=== PATIENT | female | born 1970 | race Caucasian/White ===

== ENCOUNTER 2017-04-01 16:13 | Emergency (ER) | payer SELFPAY ==
[~2017-04-01] VITALS: Ht 144.8 cm; Wt 83.6 kg
[~2017-04-01 16:13] MED LIST: ACET-2321 PO; ALBU8.5H INH; IBUP-1724 PO; OSEL75CA PO
[2017-04-01 16:15] VITALS: Ht 144.8 cm; Wt 83.6 kg
--- OUTSIDE RECORDS SUMMARY | 2017-04-01 16:17 | XMS REPORT | Continuity of Care Document ---
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 Migraine, unspecified, without mention of intractable migraine 09/10/2014 Diagnosis 09/15/2014 [facility] Periapical abscess without sinus 06/05/2014 Diagnosis 01/2014 [facility] Injury to anterior tibial artery 04/25/2014 Diagnosis [facility] No data available for this section Problem 07/20/2015 [facility] Medications Allergies, Adverse Reactions, Alerts Substance Category Reaction Severity Reaction type Status Date Reported Comments Source penicillin Assertion rash and breathing problems [facility] Immunizations Immunization Date Given Site Status Last Updated Comments Source No data available for this section No data available for this section [facility]. Results Vital Signs Encounters Location Location Details Encounter Type Encounter Number Reason For Visit Attending Provider ADM Date DC Date Status Source [facility] [id number] Emergency [id number] Zhen Owens 01/06/2013 [facility] [id number] Emergency [id number] Brody Ramirez 02/17/2014 02/17/2014 Active [facility] [id number] Emergency [id number] Sarath Byrd 04/25/2014 04/25/2014 [facility] Emergency [id number] Sarath Carson 04/25/2014 04/27/2014 [facility] [id number] Emergency [id number] Gavino Greenberg 06/05/2014 06/05/2014 Active [facility] Emergency [id number] Physician Non-Staff 06/05/2014 06/05/2014 [employer] [facility], [facility]. [facility] [id number] Emergency [id number] [facility] 09/10/2014 09/10/2014 [facility] CD:[id number] Emergency [id number] [facility] 10/22/2014 10/22/2014 [facility] CD:[id number] Emergency [id number] [facility] 03/08/2015 03/08/2015 [facility] CD:[id number] Outpatient [id number] [facility] 07/16/2015 07/16/2015 [facility] Procedures Procedure Code Date Perfomer Comments Source No data available for this section [facility] C sections [facility] left leg pins [facility] tubal ligation [facility] Plan of Care Social History Assessment and Plan Family History Value Date Source Advance Directives Order Name Results Value Date Source
--- OUTSIDE RECORDS SUMMARY | 2017-04-01 16:18 | XMS REPORT | Referral Summary ---
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 Name Role Phone No PCP, States Primary Care Physician [phone] Encounter Date(s): 09/14/16 - 09/14/16 [facility] [address] [place] [id number] Discharge Diagnosis: Right shoulder strain Discharge Disposition: 01-Home or Self Care Attending Physician: Rob Lopez MD Admitting Physician: Rob Lopez MD Vital Signs Most recent to 1 oldest [Reference Range]: Temperature Tympanic 35.8 degC [36.6-38.1 degC] *LOW* (09/14/16 9:19 AM) Peripheral Pulse 64 bpm Rate [60-100 bpm] (09/14/16 9:19 AM) Blood Pressure 110/68 mmHg [90-140/60-90 mmHg] (09/14/16 9:19 AM) Problem List Condition Effective Dates Status Health Status Informant Obesity(Confirmed) Active patient Allergies, Adverse Reactions, Alerts Substance Reaction Severity Status cyclobenzaprine itching all over Active penicillin itching Active rash Medications HYDROcodone-acetaminophen 5 mg-325 mg oral tablet 0.5 tabs, Oral, BID, as needed for right shoulder pain, X 10 days, # 10 tabs, 0 Refill(s) Start Date: 09/14/16 Stop Date: 09/24/16 Status: Ordered multivitamin Daily, 0 Refill(s) Start Date: 09/03/16 Status: Ordered Results No data available for this section Immunizations No data available for this section Procedures No data available for this section Social History Social History Type Response Smoking Status Never smoker Assessment and Plan Extracted from: Title: Ambulatory Patient Education Author: Rob Lopez MD Date: 09/14 Musculoskeletal Muscle Strain A muscle strain is an injury that occurs when a muscle is stretched beyond its normal length. Usually a small number of muscle fibers are torn when this happens. Muscle strain is rated in degrees. First-degree strains have the least amount of muscle fiber tearing and pain. Second-degree and third-degree strains have increasingly more tearing and pain. Usually, recovery from muscle strain takes 12 weeks. Complete healing takes 5 6 weeks. CAUSES Muscle strain happens when a sudden, violent force placed on a muscle stretches it too far. This may occur with lifting, sports, or a fall. RISK FACTORS Muscle strain is especially common in athletes. SIGNS AND SYMPTOMS At the site of the muscle strain, there may be: Pain. Bruising. Swelling. Difficulty using the muscle due to pain or lack of normal function. DIAGNOSIS Your health care provider will perform a physical exam and ask about your medical history. TREATMENT Often, the best treatment for a muscle strain is resting, icing, and applying cold compresses to the injured area. HOME CARE INSTRUCTIONS Use the MARLOW method of treatment to promote muscle healing during the first 23 days after your injury. The MARLOW method involves: Protecting the muscle from being injured again. Restricting your activity and resting the injured body part. Icing your injury. To do this, put ice in a plastic bag. Place a towel between your skin and the bag. Then, apply the ice and leave it on from 1520 minutes each hour. After the third day, switch to moist heat packs. Apply compression to the injured area with a splint or elastic bandage. Be careful not to wrap it too tightly. This may interfere with blood circulation or increase swelling. Elevate the injured body part above the level of your heart as often as you can. Only take [id number] or prescription medicines for pain, discomfort , or fever as directed by your health care provider. Warming up prior to exercise helps to prevent future muscle strains. SEEK MEDICAL CARE IF: You have increasing pain or swelling in the injured area. You have numbness, tingling, or a significant loss of strength in the injured area. MAKE SURE YOU: Understand these instructions. Will watch your condition. Will get help right away if you are not doing well or get worse. This information is not intended to replace advice given to you by your health care provider. Make sure you discuss any questions you have with your health care provider. Document Released: 10/24/2006 Document Revised: 08/14/2014 Document Reviewed: [employer] Interactive Patient Education 2016 [employer] No follow up information was provided. Extracted from: Title: right shoulder strain Author: Rob Lopez MD Date: 09/14/16 Impression and Plan Diagnosis Right shoulder strain ([id number] S46.911A, Discharge, Medical). Plan: 1) You may return to work tomorrow. 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 2) Wean off the Paton over the next 10 days. 3) Not to take Paton before work any day, due to risk of impairment. 4) PT ordered. 5) Continue your right shoulder exercises and stretches at home. 6) MRI of the right shoulder ordered. 7) See me in 4 weeks and as needed. 8) May take Tylenol as needed once you finish the Paton. . Orders Orders (Selected) Outpatient Orders Ordered Office Visit Level 4 Est 75008: Prescriptions Prescribed HYDROcodone-acetaminophen 5 mg-325 mg oral tablet: 0.5 tabs, Oral, BID, for 10 days, PRN: as needed for right shoulder pain, 10 tabs, 0 Refill(s). Dx/Order Association Plan: Diagnosis: Right shoulder strain Comment: Ordered: Office Visit Level 4 Est 52628; 09/14/16 9:12:00 [employer] SUPERVISOR, Right shoulder strain Additional Orders: Comment: Ordered: HYDROcodone-acetaminophen 5 mg-325 mg oral tablet,0.5 tabs , Oral, BID, as needed for right shoulder pain, X 10 days, # 10 tabs, 0 Refill(s ) End of Orders .
--- OUTSIDE RECORDS SUMMARY | 2017-04-01 16:19 | XMS REPORT | Continuity of Care Document ---
Author Author [facility] Organization [facility] Address Unknown Phone Unavailable Support Name Relationship Address Phone FABI PIÑA Merrill DO Caregiver [address] [place] [address] Unavailable MAEVE OMALLEY Next Of Kin [address] [place] [address] Insurance Providers Guarantor Amarilys Omalley Address [address] [place] [address] Email [email or web address] Payer Self Pay Subscriber's Name Amarilys Omalley Relationship 18 Self Advance Directives Directive Response Recorded Date/Time Advanced Directives Type None 12/21/16 1:05pm Chief Complaint and Reason for Visit Chief Complaint Cough,Fever,Flu,URI Reason for Visit [id number] Problems Active Problems Medical Problem Onset Date Status Heel pain Unknown Acute Sinusitis Unknown Acute Past Problems Medical Problem Onset Date Influenza A Unknown Migraine headache Unknown Migraine, intractable Unknown Nausea & vomiting Unknown Right shoulder strain Unknown Sprain of right shoulder Unknown URI (upper respiratory infection) Unknown Medications Current Home Medications Medication Dose Units Route Directions Days Qty Instructions Start Date Acetaminophen (Tylenol) 325 Mg Tablet 650 Mg Oral Every 4 Hours as needed for Pain 08/27/16 Albuterol Sulfate (Proair Hfa 90 Mcg/Actuation) 8.5 Gm Hfa.aer.ad 1 Puff Inhalation Every 4 Hours as needed for Prn Orders 03/10/16 Ibuprofen 200 Mg Tablet 400 Mg Oral Every 4 Hours as needed for Pain 07/21/16 Oseltamivir Phosphate (Tamiflu) 75 Mg Capsule 75 Mg Oral Twice A Day 5 Days 10 Capsule 12/21/16 Past Home Medications Medication Directions Ordered Status Azithromycin 250 Mg Tablet, 1 Tab Oral Daily 03/10/16 Discontinued Cyclobenzaprine Hcl 10 Mg Tablet, 1 Tab Oral Three Times A Day as needed for Pain &/Or Spasm 03/26/16 Discontinued Guaifenesin (Mucinex) 600 Mg Tbbp.12hr, 1200 Mg Oral Twice A Day as needed for Prn Orders 03/10/16 Discontinued Hydrocodone/Acetaminophen (Nelson 5-325 Tablet) 5-325 Tablet, 1 Tab Oral Every 6 Hours as needed for Pain 08/27/16 Discontinued Ondansetron (Zofran Odt) 4 Mg Tab.rapdis, 4 Mg Oral Four Times Daily as needed for Nausea &/Or Vomiting 10/21/16 Discontinued Pregabalin (Lyrica) 50 Mg Capsule, 50 Mg Oral Daily 03/10/16 Discontinued Social History Social History Problem Response Recorded Date/Time Onset Date Status Hx Substance Use No 12/21/2016 1:15pm Not Applicable Not Applicable Hx Alcohol Use No 12/21/2016 1:15pm Not Applicable Not Applicable Tobacco Usage none 12/17/2015 8:37pm Not Applicable Not Applicable Query Response Start Date Stop Date Smoking Status Never smoker Hospital Discharge Instructions No hospital discharge instructions. Plan of Care Discharge Date 12/21/16 2:12pm Disposition 01 DISCHARGED HOME, SELF-CARE Condition at Discharge Improved Instructions/Education Provided Influenza (ED) Prescriptions See Medication Section Referrals [facility] Order Date: 2 Days Care Plan and Goals Physician Care Plan Problem: influenza a Goal: Follow up with primary care provider Instructions: Take medications and follow care plan as discussed/written Functional Status No functional status results. Allergies, Adverse Reactions, Alerts Allergen Type Severity Reaction Status Last Updated Penicillin Allergy Unknown Active 12/21/16 Immunizations Query Response on File Recorded Date/Time Hx Tetanus Diptheria No 03/26/16 12:42am Hx Tetanus Toxoid Vaccination No 03/26/16 12:42am Influenza Vaccine Hx NONE 12/21/16 1:15pm Tdap Vaccine Hx NO BROKEN SKIN 08/27/16 3:04pm Vital Signs Acute Vital Signs Vital Response Date/Time Temperature (Fahrenheit) 99.3 deg F (96.8 - 99.1) 12/21/2016 2:12pm Temperature (Calculated Celsius) 37.29257 degrees C (36.0 - 37.3) 12/21/2016 2:12pm Pulse Rate (adult) 75 bpm (60 - 100) 12/21/2016 2:12pm Respiratory Rate 20 breaths/min (10 - 20) 12/21/2016 2:12pm O2 Sat by Pulse Oximetry 97 % (90 - 100) 12/21/2016 2:12pm Blood Pressure 129/65 mm Hg 12/21/2016 2:12pm Height (Feet) 4 feet 12/21/2016 1:08pm Height (Inches) 9.00 inches 12/21/2016 1:08pm Weight (Kilograms) 79.700 kg 12/21/2016 1:08pm Body Mass Index (BMI) 38.0 12/21/2016 1:08pm Results Laboratory Results Test Name Result Units Flags Reference Collection Date/Time Result Date/ Time Comments Influenza Type A Antigen POSITIVE H NEGATIVE 12/21/2016 1:22pm 2016 1:53pm If clinical symptoms do not support these results, consider ordering the "Respiratory Panel, PCR". Influenza Type B Antigen NEGATIVE NEGATIVE 12/21/2016 1:22pm 2016 1:53pm Negative for Flu B protein antigen. Assay sensitivity is 90%. Name: MAARILYS OMALLEY Unit #: [id number] : 1970 Sex: F Admit Date: Loc / Svc: ED Discharge Date: DIAGNOSTIC IMAGING REPORT Report #: [id number] [place], [place] INDICATION: ITS.REASON: Fever and cough for three days PROCEDURE: CHEST 2-VIEWS UPRIGHT (PA \\T\\ LAT) Encounter: Initial COMPARISON: None FINDINGS: The lungs are clear without evidence of focal abnormal airspace opacity. There is no pleural effusion or pneumothorax. The heart size, mediastinal contours and pulmonary vascularity are within normal limits. Mild degenerative change in the thoracic spine. IMPRESSION: No acute cardiopulmonary disease. . Procedures No known history of procedures. Encounters Encounter Location Arrival/Admit Date Discharge/Depart Date Attending Provider Departed Emergency Room [facility] 12/21/16 12:56pm 12/21/16 2: 12pm FABI PIÑA DO Departed Emergency Room [facility] 10/21/16 12:19pm 10/21/16 12: 54pm MAYYAZAN DO Recent Diagnosis
--- OUTSIDE RECORDS SUMMARY | 2017-04-01 16:19 | XMS REPORT | Referral Summary ---
Author Author [facility] Organization [facility] Address Unknown Phone Unavailable Care Team Providers Care Wireless Team Member Name Role Phone No PCP, States Primary Care Physician [phone] Encounter Date(s): 09/03/16 - 09/03/16 [facility] [address] [place] [id number] Discharge Diagnosis: Right shoulder strain Discharge Disposition: 01-Home or Self Care Attending Physician: Rob Lopez MD Admitting Physician: Rob Lopez MD Vital Signs Most recent to 1 oldest [Reference Range]: Temperature Tympanic 35.6 degC [36.6-38.1 degC] *LOW* (09/03/16 10:05 AM) Peripheral Pulse 64 bpm Rate [60-100 bpm] (09/03/16 10:05 AM) Blood Pressure 118/72 mmHg [90-140/60-90 mmHg] (09/03/16 10:05 AM) Problem List Condition Effective Dates Status Health Status Informant Obesity(Confirmed) Active patient Allergies, Adverse Reactions, Alerts Substance Reaction Severity Status cyclobenzaprine itching all over Active penicillin itching Active rash Medications HYDROcodone-acetaminophen 5 mg-325 mg oral tablet 1 tabs, Oral, BID, as needed for right shoulder pain, X 12 days, # 24 tabs, 0 Refill(s) Start Date: 09/03/16 Stop Date: 09/15/16 Status: Ordered ibuprofen 4 tabs, Oral, BID, for right shoulder pain, 0 Refill(s) Start Date: 04/01/16 Status: Ordered multivitamin Daily, 0 Refill(s) Start Date: 09/03/16 Status: Ordered Results No data available for this section Immunizations No data available for this section Procedures No data available for this section Social History Social History Type Response Smoking Status Never smoker Assessment and Plan Extracted from: Title: Ambulatory Patient Education Author: Rob Lopez MD Date: Musculoskeletal Muscle Strain A muscle strain is [...] as often as you can. Only take xyta-aun-deakngp or prescription medicines for pain, discomfort , [...] Released: 10/24/2006 Document Revised: 08/14/2014 Document Reviewed: [employer] Interactive Patient Education 2016 [employer] No follow up information was provided. Extracted from: Title: right shoulder strain Author: Rob Lopez MD Date: 09/03/16 Impression and Plan Diagnosis Right shoulder strain ([id number] S46.811A, Discharge, Medical). Plan: 1) Off work for now. 2) PT ordered. 3) MRI of the right shoulder recommended. 4) Alternate ice and heat to the right shoulder as needed. 5) See me in 7-10 days and as needed. 6) [place] prescribed. 7) Plain AC joint xrays obtained--negative for AC separation.. Orders Orders (Selected) Outpatient Orders Ordered Office Visit Level 4 Est 94867: Completed XR AC Joints Bilateral w/ + w/o wts: Prescriptions Prescribed HYDROcodone-acetaminophen 5 mg-325 mg oral tablet: 1 tabs, Oral, BID, for 12 days, PRN: as needed for right shoulder pain, 24 tabs, 0 Refill(s). Dx/Order Association Plan: Diagnosis: Right shoulder strain Comment: Ordered: Office Visit Level 4 Est 63692; 09/03/16 15:58:00 CDT, Right shoulder strain Other status: XR AC Joints Bilateral w/ + w/o wts; 09/03/16 9:27: 00 CDT, Routine, Stop date 09/03/16 9:27:00 CDT, Reason: Pain in joint, shoulder , Right shoulder strain, ABN Status: Not Required (Completed) Additional Orders: Comment: Discontinued: HYDROcodone-acetaminophen 5 mg-325 mg oral tablet,1 tabs, Oral, BID, as needed for right shoulder pain, 0 Refill(s) Ordered: HYDROcodone-acetaminophen 5 mg-325 mg oral tablet,1 tabs, Oral, BID, as needed for right shoulder pain, X 12 days, # 24 tabs, 0 Refill(s) Ordered: multivitamin,Daily, 0 Refill(s) End of Orders .
[2017-04-01] MEDS ORDERED: RANI150T7 PO (16:25)
--- OUTSIDE RECORDS SUMMARY | 2017-04-01 16:37 | XMS REPORT | Continuity of Care Document ---
Author Author Anais Stratton Anais Address Unknown Phone Unavailable Care Team Providers Care Director Of Sleep Name Role Phone [employer] Unavailable Unavailable Problems Problem Status Onset Date Classification Date Reported Comments Source Migraine, unspecified, without mention of intractable migraine 10/22/2014 Diagnosis 10/26/2014 [facility] Migraine, unspecified, without mention of intractable migraine 09/10/2014 Diagnosis 09/15/2014 [facility] Periapical abscess without sinus 06/05/2014 Diagnosis 01/2014 [facility] Injury to anterior tibial artery 04/25/2014 Diagnosis [facility] No data available for this section Problem 07/20/2015 [facility] Medications Allergies, Adverse Reactions, Alerts Substance Category Reaction Severity Reaction type Status Date Reported Comments Source penicillin Assertion rash and breathing problems [facility] Immunizations Immunization Date Given Site Status Last Updated Comments Source No data available for this section No data available for this section [facility]. Results Vital Signs Encounters Location Location Details Encounter Type Encounter Number Reason For Visit Attending Provider ADM Date DC Date Status Source [facility] [id number] Emergency [id number] Zhen Owens 01/06/2013 [facility] CD:165330 Emergency [id number] Brody Ramirez 02/17/2014 02/17/2014 Active [facility] CD:[id number] Emergency [id number] Sarath Byrd 04/25/2014 04/25/2014 [facility] Emergency [id number] Sarath Carson 04/25/2014 04/27/2014 [facility] CD:[id number] Emergency [id number] Gavino Greenberg 06/05/2014 06/05/2014 Active [facility], [facility] Emergency [id number] Physician Non-Staff 06/05/2014 06/05/2014 [facility], [facility]. [facility] CD:[id number] Emergency [id number] [facility] [place] 09/10/2014 09/10/2014 [facility] [id number] Emergency [id number] [facility] 10/22/2014 10/22/2014 [facility] [id number] Emergency [id number] [facility] [place] 03/08/2015 03/08/2015 [facility] [id number] Outpatient [id number] [facility] 07/16/2015 07/16/2015 [facility] Procedures Procedure Code Date Perfomer Comments Source No data available for this section [facility] C sections [facility] left leg pins [facility] tubal ligation [facility] Plan of Care Social History Assessment and Plan Family History Value Date Source Advance Directives Order Name Results Value Date Source
--- NOTE | 2017-04-01 16:55 | DI ---
Indication: ITS.REASON: Right shoulder pain, injury today PROCEDURE: SHOULDER RIGHT 3 VIEWS: Encounter: Initial Comparison: August 24, 2016 Findings: There is no acute fracture, dislocation or malalignment identified. Acromioclavicular and glenohumeral joint spaces are maintained and unchanged. Impression: No acute osseous abnormality. .
--- NOTE | 2017-04-01 17:04 | ERPDOC ---
Departure Disposition Decision Date: April 01, 2017 Disposition Decision Time: 17:08 Disposition: 01 DISCHARGED HOME, SELF-CARE Impression Impression Impression: Primary Impression: Right shoulder strain Encounter type: initial encounter Qualified Codes: S46.911A - Strain of unspecified muscle, fascia and tendon at shoulder and upper arm level, right arm , initial encounter Severity: Moderate Condition: Improved Seen By: Physician only Referrals: [facility] 2 Days Patient Instructions: Shoulder Sprain (ED) Problems/Meds/Labs Reviewed?: Yes Medications reviewed and manag: Yes Follow up care ordered?: Yes Mental Status: Alert, Oriented Scripts Hydrocodone/Acetaminophen ([place] 5-325 Tablet) 5-325 Tablet 1 TAB PO Q4HR Y for PAIN for 3 Days, #18 TAB 0 Refills Prov: FABI PIÑA DO 04/01/17 Naproxen (Naprosyn) 500 Mg Tablet 1 TAB PO BID Y for PAIN for 10 Days, #20 TAB 0 Refills Prov: FABI PIÑA DO 04/01/17 HPI - General Medical General Chief Complaint: Upper Extremity Injury Stated Complaint: ARM INJURY Time Seen by Provider: 16:33 Source: patient Exam Limitations: no limitations HPI - General Medical Initial Comments 46-year-old female presents to the ED with the chief complaint of a right shoulder injury. Patient noted onset of symptoms earlier today while changing a tire. Patient noted onset of symptoms after pulling on a tight lug nut with a wrench. Patient notes a moderate dull aching pain in the right shoulder without radiation. Pain improves with rest and positioning and increases with movement and direct palpation of the affected area. She denies any other injuries. No other complaints or associated symptoms. Patient does note that she had a prior injury to the shoulder approximately 3 years ago. She states she injured the shoulder again one year ago. Occurred At: other (Changing a tire) Onset: Constant Allergies: Coded Allergies: Penicillins (Verified Allergy, Unknown, 04/01/17) Past History Past Medical History Pt denies signifigant PMH Neurological: migraines Surgical History Denies Surgeries Family History Family PMH: FOUND: cancer Vaccines Hx Tetanus Diptheria: No Social History Smoking Status: Never smoker Substance Use Type: does not use Alcohol Intake: none Review of Systems Constitutional Constitutional: DENIES: chills, fever Eyes General: DENIES: burning, erythema, exudate, itching Lids/Accessories: DENIES: erythema, swelling Vision: DENIES: acuity, blurring ENMT Ears: DENIES: drainage, erythema Hearing: DENIES: hearing loss Balance: DENIES: ataxia, falling to one side Sinuses: DENIES: congestion, pain Nose: DENIES: nosebleeds, pain Mouth/Throat: DENIES: painful swallowing, sore throat Teeth: DENIES: pain Jaw: DENIES: pain Cardiovascular Cardiac: DENIES: chest pain, dyspnea on exertion Rhythm/Rate: DENIES: irregular beat, palpitations Vascular: DENIES: pedal edema, unilateral swelling Pulmonary Respiratory: DENIES: cough, dyspnea, pleuritic chest pain, sputum GI Upper Abdomen: DENIES: nausea, pain, vomiting Lower Abdomen: DENIES: diarrhea, pain General: DENIES: burning, dysuria, frequency, urgency Musculoskeletal General: joint pain, pain, tenderness Integumentary Skin: DENIES: itching, rash Neurological General: DENIES: change in strength, headache, numbness, weakness Psychiatric Psychiatric: DENIES: emotional instability, suicidal ideation/attempt Endocrine Endocrine: DENIES: polydipsia, polyphagia Hematologic/Lymphatic Hematologic/Lymphatic: DENIES: frequent nosebleeds, lymphadenopathy Allergic/Immunological Allergic/Immunoligical: DENIES: allergic reactions, hives Physical Exam General General Nourishment: well nourished, well developed, appears stated age, no acute distress, adult General Body Habitus: well groomed Vitals and Pain First Documented Vital Signs Date Time Temp Pulse Resp B/P Pulse Ox O2 Delivery O2 Flow Rate FiO2 04/01/17 16:15 98.4 74 17 130/68 96 Room Air Weight: Kilograms: 83.600 Height (feet): 4 Height (inches): 9.00 Triage Pain Scale: RN VS reviewed by Provider: Yes Normal Exams: Head: Normocephalic w/o trauma Eyes: Pupils are PERRLA w/ EOMI, No scleral icterus, irritation, or foreign bodies noted ENMT: No facial trauma, nasal exudates, pharyngeal erythema, or exudates are noted Dental: No fractured, loose, or missing teeth noted Neck: Full range of motion, without adenopathy, JVD, bruits or thyromegaly Chest/Resp: Clear all clemnes, with good airflow, and symmetry bilaterally CV: Regular rate and rhythm, without murmur or gallop, Pulses 2+ all extremities, capillary refill, <2 seconds all ext., no pedal edema noted Abdomen: Bowel sounds positive, soft, non-tender, non-distended, no hepatosplenomegaly, masses or bruits noted Lymphatic: No lymphadenopathy, or lymphedema noted Integumentary: No rashes, hives, or bruising noted, hair and nails, without abnormality Neurologic: Patient is alert, and oriented, cranial nerves, motor/sensory/ cerebellar, exams w/o gross deficits, to observation Psychiatric: Patient exhibits, appropriate attention, emotion and affect Musculoskeletal (brief) Comments Right shoulder - full range of motion. Diffusely tender to palpation without focal bony tenderness. Pulses are intact. Sensation intact. Capillary refill less than 2. No other tenderness in the right upper extremity. No erythema or edema. Skin intact. All other extremities are unremarkable. Differential Diagnoses Considering: Other (Sprain, strain, fracture, contusion) Progress Results/Orders Orders Procedure Category Date Status Time Shoulder Right 2-3 RAD 04/01/17 Resulted Views 16:36 Sling EDM 04/01/17 Transmitted 17:07 Naproxen (Naprosyn PHA 04/01/17 Complete 500mg) 17:15 Medications Current ED Medications Naproxen (NAPROSYN 500mg) 500 mg O ONCE PO ; Start 04/01/17 at 17:15; Stop at 17:16; Status DC Progress Progress Imaging is discussed in detail with the patient and questions are answered. Patient is given analgesic pain medication with improvement of symptoms in the emergency department. She is instructed to stop her Motrin. She is provided with a prescription for Naprosyn and [place]. She is placed in a sling with good alignment by the RN. Patient is distal neurovascular intact post-application of sling. Patient is in agreement with the current plan of management. She is discharged home in improved condition. Patient is to follow up as instructed. Patient is to return to the emergency Department if her condition worsens or changes in any manner. Work note is provided at patient request. Xray Xray : Xray: Shoulder R Interpretation: Normal, Reviewed Written Report FABI PIÑA DO April 01, 2017 17:04
[2017-04-01] MEDS ORDERED: NAPR500T PO (17:10)
[2017-04-01] MEDS ORDERED: HYDR-4246 PO (17:10)
[2017-04-01] MEDS: NAPROXEN 500 MG TABLET PO ONE (17:26)
[2017-04-01 17:27] VITALS: BP 130/68; PULSE 74; RESP 17; TEMP 98.4; O2SAT 96
== END 2017-04-01 17:27 | disposition home or self-care (01) ==
LOC: ED 16:13
DX: S46.911A Strain of unspecified muscle, fascia and tendon at shoulder and upper arm level, right arm, initial encounter (principal); X50.9XXA Other and unspecified overexertion or strenuous movements or postures, initial encounter; Y93.89 Activity, other specified; Y92.008 Other place in unspecified non-institutional (private) residence as the place of occurrence of the external cause; Y99.8 Other external cause status